=== PATIENT | female | born 1940 | race African-American/Black ===

== ENCOUNTER 2023-09-04 19:28 | Observation (INO) | payer OTHER ==
[2023-09-04 19:40] VITALS: BMI 21.5
[2023-09-05 01:37] LABS: BASO % 0.6 % (0-2.0); HEMATOCRIT 39.1 % (32.4-45.2); HEMOGLOBIN 12.7 GM/dL (10.7-15.3); LYMPH % 33.2 % (8-40); MCH 29.4 pg (25.7-33.7); MCHC 32.4 g/dl (32.0-36.0); MEAN CELL VOLUME 90.7 fl (80-96); MEAN PLT VOLUME 9.2 fl (7.5-11.1); MONO % 11.1 % (3.8-10.2); NEUT % 54.1 % (42.8-82.8); PLATELET COUNT 260 10^3/uL (134-434); RBC 4.31 M/mm3 (3.60-5.2); WHITE BLOOD COUNT 6.7 K/mm3 (4.0-10.0)
[2023-09-05 02:09] LABS: CHLORIDE 106 mmol/L (98-107); SODIUM 137 mmol/L (136-145)
[2023-09-05 02:11] LABS: CALCIUM 10.3 mg/dL (8.5-10.1)
[2023-09-05 02:12] LABS: ALBUMIN 3.2 g/dl (3.4-5.0); BLOOD UREA NITROGEN 8.2 mg/dL (7-18); CO2 28 mmol/L (21-32); GLUCOSE,RANDOM 90 mg/dL (74-106)
[2023-09-05 02:15] LABS: CREATININE 0.9 mg/dL (0.55-1.3)
[2023-09-05 02:16] LABS: BILIRUBIN,TOTAL 0.5 mg/dL (0.2-1)
[2023-09-05 02:18] LABS: ALK PHOS 91 U/L (45-117)
[2023-09-05 02:24] LABS: ANION GAP 4 mmol/L (4-13); POTASSIUM 7.6 mmol/L (3.5-5.1); SGOT/AST 63 U/L (15-37); SGPT/ALT 24 U/L (13-61)
[2023-09-05] MEDS ORDERED: guaiFENesin 200 MG/10 ML 10 ML UNIT-DOSE CUPS PO ONE (02:24)
[2023-09-05 02:42] LABS: N-TERMINAL BNP 573.3 pg/ml (5-450)
[2023-09-05 03:14] LABS: POTASSIUM 3.7 mmol/L (3.5-5.1)
[2023-09-05 03:16] LABS: BLOOD UREA NITROGEN 8.3 mg/dL (7-18); CALCIUM 10.3 mg/dL (8.5-10.1)
[2023-09-05 03:20] LABS: CREATININE 0.8 mg/dL (0.55-1.3)
[2023-09-05 03:24] LABS: N-TERMINAL BNP 594.5 pg/ml (5-450)
[2023-09-05] MEDS ORDERED: guaiFENesin/CODEINE 10 ML UNIT-DOSE CUPS ONE (04:05)
[2023-09-05] MEDS ORDERED: ALBUTEROL SO4 0.083% IH SOL 2.5 MG/3 ML VIAL.NEB. NEB ONE (04:05)
[2023-09-05] MEDS: ALBUTEROL SO4 0.083% IH SOL 2.5 MG/3 ML VIAL.NEB. NEB SCH ×2 (04:14→04:20)
[2023-09-05 07:08] VITALS: TEMP 98
[2023-09-05] MEDS ORDERED: guaiFENesin 200 MG/10 ML 10 ML UNIT-DOSE CUPS PO PRN (08:35)
[2023-09-05] MEDS ORDERED: ALBUTEROL SO4 0.083% IH SOL 2.5 MG/3 ML VIAL.NEB. NEB PRN (08:35)
[2023-09-05] MEDS ORDERED: PANTOPRAZOLE 40 MG TABLET PO SCH (10:00)
[2023-09-05] MEDS ORDERED: ENOXAPARIN NA (PORCINE) 40 MG/0.4 ML DISP.SYRIN SQ SCH (10:00)
[2023-09-05] MEDS ORDERED: VALSARTAN 160 MG TABLET PO SCH (10:00)
[2023-09-05] MEDS ORDERED: amLODIPine BESYLATE 5 MG TABLET (FP) PO SCH (10:00)
[2023-09-05] MEDS ORDERED: metoPROLOL SUCCINATE 25 MG TAB.SR.24H (FP) PO SCH (10:00)
[2023-09-05 11:32] VITALS: BP 122/69; PULSE 59; RESP 16
[2023-09-05] MEDS ORDERED: ATORVASTATIN CA 10 MG TABLET (FP) PO SCH (22:00)
== END 2023-09-05 12:24 | disposition home or self-care (01) ==
LOC: JER 19:28 → JERBED 09-05 04:41
PROVIDERS: ADMIT Internal Medicine; ATTEND Internal Medicine
PROC: 3E0F7GC Introduction of Other Therapeutic Substance into Respiratory Tract, Via Natural or Artificial Opening (ICD-10-PCS; principal; 2023-09-05)
PROC: 3E023GC Introduction of Other Therapeutic Substance into Muscle, Percutaneous Approach (ICD-10-PCS; 2023-09-05)
DX: R05.9 Cough, unspecified (principal); R77.9 Abnormality of plasma protein, unspecified; K21.9 Gastro-esophageal reflux disease without esophagitis; I10 Essential (primary) hypertension; E78.5 Hyperlipidemia, unspecified; R07.9 Chest pain, unspecified
CPT/HCPCS: 0241U-QW; 36415; 71046-TC-FY; 80048; 80053; 82550; 82553; 83880; 84484; 85025; 93005; 93010; 94640; 96372; 99285-25; G0378

== ENCOUNTER 2023-09-15 15:55 | Emergency (ER) | payer OTHER ==
[2023-09-15 16:13] VITALS: BP 160/77; PULSE 79; RESP 18; TEMP 98.2; BMI 19.7
[2023-09-15] MEDS ORDERED: ONDANSETRON 4 MG/2 ML VIAL IVPUSH ONE (16:55)
[2023-09-15] MEDS ORDERED: MAG HYDROX/AL HYDROX/SIMETH 30 ML UNIT-DOSE CUP PO ONE (17:06)
[2023-09-15] MEDS ORDERED: FAMOTIDINE 20 MG/50 ML IVPB 20 MG/50 ML MG IVPB ONE ×2 (17:06→18:42)
[2023-09-15] MEDS ORDERED: MAG HYDROX/AL HYDROX/SIMETH 30 ML UNIT-DOSE CUP ONE (18:41)
[2023-09-15] MEDS ORDERED: ONDANSETRON 4 MG/2 ML VIAL ONE (18:42)
[2023-09-15 19:01] LABS: BASO % 0.8 % (0-2.0); EOS % 0.8 % (0-4.5); HEMATOCRIT 41.3 % (32.4-45.2); HEMOGLOBIN 13.3 GM/dL (10.7-15.3); LYMPH % 38.3 % (8-40); MCH 29.3 pg (25.7-33.7); MCHC 32.3 g/dl (32.0-36.0); MEAN CELL VOLUME 90.8 fl (80-96); MONO % 9.5 % (3.8-10.2); NEUT % 50.6 % (42.8-82.8); PLATELET COUNT 231 10^3/uL (134-434); RBC 4.55 M/mm3 (3.60-5.2); WHITE BLOOD COUNT 4.6 K/mm3 (4.0-10.0)
[2023-09-15 19:13] LABS: EPI CELLS 31 /uL (0-25.1); HYALINE CASTS 0 /uL (0-3.1); PH,URINE 5.5 (5.0-8.0); URINE APPEARANCE CLEAR; URINE BACTERIA 161 /uL (0-1359); URINE BILIRUBIN NEGATIVE (NEGATIVE); URINE COLOR YELLOW; URINE GLUCOSE (UA) NEGATIVE (NEGATIVE); URINE KETONE NEGATIVE (NEGATIVE); URINE LEUK ESTERASE 1+ (NEGATIVE); URINE NITRITE NEGATIVE (NEGATIVE); URINE PROTEIN NEGATIVE (NEGATIVE); URINE RBC 12 /uL (0-23.9); URINE WBC 32 /uL (0-25.8)
[2023-09-15 19:24] LABS: POTASSIUM 3.9 mmol/L (3.5-5.1)
[2023-09-15 19:26] LABS: CALCIUM 10.4 mg/dL (8.5-10.1)
[2023-09-15 19:27] LABS: ALBUMIN 3.7 g/dl (3.4-5.0); BLOOD UREA NITROGEN 9.9 mg/dL (7-18)
[2023-09-15 19:30] LABS: CREATININE 0.9 mg/dL (0.55-1.3)
[2023-09-15 19:31] LABS: BILIRUBIN,TOTAL 0.9 mg/dL (0.2-1)
== END 2023-09-15 22:23 | disposition home or self-care (01) ==
LOC: JER 15:55
PROC: 3E033GC Introduction of Other Therapeutic Substance into Peripheral Vein, Percutaneous Approach (ICD-10-PCS; principal; 2023-09-15)
PROC: 3E033GC Introduction of Other Therapeutic Substance into Peripheral Vein, Percutaneous Approach (ICD-10-PCS; 2023-09-15)
DX: R11.0 Nausea (principal); R10.13 Epigastric pain; R05.9 Cough, unspecified; Z20.822 Contact with and (suspected) exposure to COVID-19
CPT/HCPCS: 0241U-QW; 36415; 71046-TC-FY; 80053; 81003; 82550; 84484; 85025; 93005; 93010; 96365; 96375; 99285-25

== ENCOUNTER 2024-02-06 17:10 | Emergency (ER) | payer OTHER ==
[2024-02-06 17:21] VITALS: BMI 20.6
[2024-02-06] MEDS: ASPIRIN 81 MG CHEWABLE TABLETS PO ONE (17:55)
[2024-02-06] MEDS ORDERED: HEPARIN NA (PORCINE) 5,000 UNITS/ML 1ML VIAL IVPUSH PRN ×2 (17:58)
[2024-02-06] MEDS: HEPARIN NA (PORCINE) 5,000 UNITS/ML 1ML VIAL IVPUSH ONE (18:00)
[2024-02-06] MEDS ORDERED: TICAGRELOR 90 MG TABLET PO ONE (18:08)
[2024-02-06] MEDS ORDERED: HEPARIN NA (PORCINE) 5,000 UNITS/ML 1ML VIAL ONE (18:09)
[2024-02-06] MEDS ORDERED: HEPARIN INFUSION - 25,000 UNITS/500 ML INFUS.BAG IVPB ONE (18:09)
[2024-02-06] MEDS ORDERED: ASPIRIN 81 MG CHEWABLE TABLETS ONE (18:09)
[2024-02-06 18:14] LABS: BASO % 0.4 % (0-2.0); EOS % 0.4 % (0-4.5); HEMATOCRIT 39.9 % (32.4-45.2); HEMOGLOBIN 13.2 GM/dL (10.7-15.3); LYMPH % 17.4 % (8-40); MCHC 33.1 g/dl (32.0-36.0); MEAN CELL VOLUME 90.8 fl (80-96); MEAN PLT VOLUME 9.6 fl (7.5-11.1); MONO % 6.4 % (3.8-10.2); NEUT % 75.4 % (42.8-82.8); PLATELET COUNT 200 10^3/uL (134-434); RDW 14.2 % (11.6-15.6); WHITE BLOOD COUNT 8.8 K/mm3 (4.0-10.0)
[2024-02-06] MEDS ORDERED: NITROGLYCERIN SUBLINGUAL 1/150 0.4 MG TAB ONE (18:17)
[2024-02-06] MEDS ORDERED: CLOPIDOGREL BISULFATE 300 MG TABLET ONE (18:17)
[2024-02-06 18:26] LABS: INR 1.3 (0.83-1.09); PROTHROMBIN TIME (PATIENT) 14.6 SEC (9.7-13.0)
[2024-02-06 18:28] LABS: ACTIVATED PTT 26.7 SECONDS (25.2-36.5)
[2024-02-06 18:35] LABS: POTASSIUM 4.4 mmol/L (3.5-5.1)
[2024-02-06 18:36] LABS: CALCIUM 10.9 mg/dL (8.5-10.1)
[2024-02-06 18:37] LABS: ALBUMIN 4.2 g/dl (3.4-5.0); BLOOD UREA NITROGEN 16.7 mg/dL (7-18); MAGNESIUM 2.3 mg/dL (1.8-2.4)
[2024-02-06 18:40] LABS: CREATININE 1.1 mg/dL (0.55-1.3); PHOSPHOROUS 2.3 mg/dL (2.5-4.9)
[2024-02-06 18:41] LABS: BILIRUBIN,TOTAL 1.2 mg/dL (0.2-1); TOT PROT 7.8 g/dl (6.4-8.2)
[2024-02-06] MEDS: HEPARIN SOD,PORK IN 0.45% NACL 25,000 UNIT/500 ML INFUS.BAG IVPB SCH (18:41)
[2024-02-06] MEDS: CLOPIDOGREL BISULFATE 300 MG TABLET PO ONE ×2 (18:42→18:43)
[2024-02-06] MEDS: NITROGLYCERIN SUBLINGUAL 1/150 0.4 MG TAB SL ONE ×2 (18:42)
[2024-02-06] MEDS: TICAGRELOR 90 MG TABLET PO ONE (18:43)
[2024-02-06 19:16] VITALS: BP 98/51; PULSE 53; TEMP 98.4
[2024-02-06 19:20] VITALS: RESP 16
== END 2024-02-06 19:10 | disposition short-term general hospital (02) ==
LOC: JER 17:10
DX: I21.3 ST elevation (STEMI) myocardial infarction of unspecified site (principal); I10 Essential (primary) hypertension; Z20.822 Contact with and (suspected) exposure to COVID-19
CPT/HCPCS: 0241U-QW; 36415; 71045-TC-FY; 80053; 82962; 83735; 84100; 84484; 85025; 85610; 85730; 86850; 86900; 86901; 93005; 93010; 99285-25; J1644